=== PATIENT | male | born 1965 ===

== ENCOUNTER 2021-04-16 06:54 | Day surgery (SDC) | payer OTHER ==
[~2021-04-16 06:54] MED LIST: ASPIRIN LOW81 M1 PO; LIPITOR20 M1 PO; LISINOPRIL5 MG PO; METFORMIN HYD1000 MG PO; NOVOLIN N100 UNIT SC
[2021-04-16 08:44] VITALS: BP 144/86
== END 2021-04-16 09:00 | disposition home or self-care (01) | DRG 395 ==
LOC: ENDO 06:54 → EDBD 08:00 → ORM 08:00 → ENDO 09:00
PROVIDERS: ATTEND Surgery
PROC: 0DJD8ZZ Inspection of Lower Intestinal Tract, Via Natural or Artificial Opening Endoscopic (ICD-10-PCS; principal; 2021-04-16)
DX: K64.8 Other hemorrhoids (principal)